=== PATIENT | female | born 1940 | race Caucasian/White ===

== ENCOUNTER 2016-12-10 09:04 | Emergency (ER) | payer MEDICARE, OTHER ==
[2016-12-10 08:48] LABS: BASOPHILS 0.1 %; BASOPHILS ABSOLUTE 0.01 10/3/uL (0.0-0.16); EOSINOPHILS ABSOLUTE 0.15 10/3/uL (0.0-0.53); HEMATOCRIT 40.8 % (36.0-48.0); HEMOGLOBIN 13.7 g/dL (12.0-16.0); IMMATURE GRANULOCYTES 0.5 %; IMMATURE GRANULOCYTES ABSOLUTE 0.04 10/3/uL (0.0-0.11); LYMPHOCYTES 22.6 %; LYMPHOCYTES ABSOLUTE 1.69 10/3/uL (0.67-4.30); MANUAL DIFF NO %; MEAN CORPUS HGB CONC 33.6 g/dL (32.0-36.0); MEAN CORPUSCULAR HEMOGLOB 28.1 pg (26.0-34.0); MEAN CORPUSCULAR VOLUME 83.8 fL (80-100); MONOCYTES 5.9 %; MONOCYTES ABSOLUTE 0.44 10/3/uL (0.21-1.20); NEUTROPHILS 68.9 %; NEUTROPHILS ABSOLUTE 5.14 10/3/uL (2.02-8.40); PLATELET COUNT 155 10/3/uL (150-400); RBC DISTRIBUTION WIDTH 13.5 % (12.0-16.0); RED CELL COUNT 4.87 10/6/uL (4.0-5.6); WHITE BLOOD CELLS 7.5 10/3/uL (4.5-10.5)
[2016-12-10 09:04] LABS: A/G RATIO 1.2 (0.7-1.9); ALKALINE PHOSPHATASE 129 U/L (45-117); BUN (BLOOD UREA NITROGEN) 15 MG/DL (6-23); CALCIUM, SERUM 9.8 MG/DL (8.5-10.4); CHLORIDE, SERUM 111 MMOL/L (96-112); CO2 (CARBON DIOXIDE) 25 MMOL/L (24-34); CREATININE 0.84 MG/DL (0.55-1.02); GFR AFRICAN AMERICAN 79 ML/MIN (>=60); GFR NON AFRICAN AMERICAN 68 ML/MIN (>=60); GLOBULIN 3.4 G/DL (2.5-4.1); SGOT(AST) 16 U/L (5-40); SGPT(ALT) 18 U/L (5-65); SODIUM, SERUM 145 MMOL/L (135-148); TOTAL BILIRUBIN 0.4 MG/DL (0-1.2); TOTAL PROTEIN 7.4 G/DL (6.0-8.5)
[~2016-12-10 09:04] MED LIST: ADVIL PO; ASAB PO; BEN25 PO; BENTYL10 PO; BENTYL20 PO; CALTRA600D PO; FISH OIL OTC PO; FLONASE NAS; ICAPS AREDS SO1 EACH PO; LIPITOR20 PO; LORT7 PO; MCZ25 PO; MULTIVITAMI1 PO; PEP20 PO; PROTONIX PO; REFRESH PLUS0.5 % OPH; SUCR PO; VITAMI13 TOP; VIVELLE SY0.075 MG/2 TOP; VIVELLE-DOT0.075 MG TOP; ZETIA PO
[2016-12-10 09:06] LABS: ASCORBIC ACID (UR NOT ORDER) 40 (NEG); BILIRUBIN, URINE NEGATIVE (NEG); ER URINALYSIS TAT 0 Hrs 22 Mins; GLUCOSE, SERUM 142 MG/DL (60-99); KETONE, URINE NEGATIVE (NEG); LEUKOCYTE ESTERASE(NOT OR TRACE (NEG); NITRITE (URINE) NEG (NEG); WBC (NOT ORDERED) (RFLEX) 2 (0-5)
== END 2016-12-10 09:50 | disposition home or self-care (01) ==
LOC: ER 09:04
PROVIDERS: Hospitalist
DX: R07.89 Other chest pain (principal); K21.9 Gastro-esophageal reflux disease without esophagitis; E11.9 Type 2 diabetes mellitus without complications; Z86.73 Personal history of transient ischemic attack (TIA), and cerebral infarction without residual deficits; Z85.038 Personal history of other malignant neoplasm of large intestine; Z88.5 Allergy status to narcotic agent; Z88.8 Allergy status to other drugs, medicaments and biological substances; Z88.6 Allergy status to analgesic agent; Z91.041 Radiographic dye allergy status; Z79.899 Other long term (current) drug therapy; Z79.82 Long term (current) use of aspirin
CPT/HCPCS: 71010; 80053; 81001; 85025; 99285